=== PATIENT | female | born 1950 | race Caucasian/White ===

== ENCOUNTER 2019-09-12 08:49 | Day surgery (SDC) | payer MEDICARE, MEDICAID ==
[~2019-09-12] VITALS: Ht 160 cm; Wt 65.3 kg
[2019-09-12] VITALS (7 sets, daily range): BP systolic 110–134; BP diastolic 67–75
[2019-09-12] MEDS ORDERED: normal saline 1000ml 1,000 ML IV SCH ×2 (09:20→11:23)
[2019-09-12] MEDS ORDERED: LIDOcaine/PRILOcaine 5gm cream TP ONE (09:50)
[2019-09-12] MEDS ORDERED: HYDR12.55 PO (10:23)
[2019-09-12] MEDS ORDERED: LIDOcaine 1%/PF 5ML 10 MG/ML VIAL ONE (10:26)
[2019-09-12] MEDS ORDERED: ALBU18HF2 INH (10:27)
[2019-09-12] MEDS ORDERED: LISI10TA4 PO (10:27)
[2019-09-12] MEDS ORDERED: SIMV-42 PO (10:27)
[2019-09-12] MEDS ORDERED: ACET-2119 PO (10:27)
[2019-09-12] MEDS ORDERED: midazolam 2 mg/2 ml injection ONE (10:35)
[2019-09-12] MEDS ORDERED: fentaNYL/PF 50MCG/1 ML 2ML syringe ONE (10:35)
[2019-09-12] MEDS ORDERED: heparin sodium, porcine/PF 100unit/ml 5ML syringe ONE (10:41)
--- NOTE | 2019-09-12 11:11 | NUR ---
Pt to procedure at 10:20
== END 2019-09-12 12:37 | disposition home or self-care (01) ==
LOC: SSTAY O 08:49
PROVIDERS: ATTEND Radiology Vascular & Interventional Radiology
DX: C34.11 Malignant neoplasm of upper lobe, right bronchus or lung (principal); I10 Essential (primary) hypertension; Z87.891 Personal history of nicotine dependence; Z88.2 Allergy status to sulfonamides; Z88.5 Allergy status to narcotic agent
CPT/HCPCS: 36561; 76937; 77001; 99152; 99153; C1769; C1788; C1894; J1642; J2250; J3010; J7030